=== PATIENT | female | born 1965 | race Two or more races ===

== ENCOUNTER → 2024-07-25 | Outpatient (CLI) | payer MEDICAID, SELFPAY ==
--- NOTE | 2024-07-25 09:30 | XR_ITS ---
EXAMINATION: PET/CT FUSION SKULL TO THIGH EXAM DATE AND TIME: July 25, 2024 1023 hours Comparison PET/CT scan 12/07/2023 INDICATIONS: Diagnosis breast cancer, staging CTDI:vol (mGy) 2.8 DLP: (mGycm) 221.87 PROCEDURE: 17 mCi FDG was administered intravenously To allow for distribution and uptake of radiotracer, the patient was allowed to rest quietly in a shielded room. Imaging was performed on an integrated 16-slice PET/CT scanner, with scanning from the skull base to the mid thigh. Serum blood glucose at the time of the injection was measured 86 mg/dL. CT scanning was performed without oral or intravenous contrast material. FINDINGS: Head and Neck: There is no aly hypermetabolism in the neck. The visualized portions of the brain are normal in appearance on CT. Chest: There is no aly hypermetabolism in the chest. There are no pulmonary nodules. Abdomen and Pelvis: There is no aly hypermetabolism in retroperitoneal or pelvic chains. The spleen is normal in size and FDG avidity. Musculoskeletal: Stable mild hypermetabolic activity right humeral head IMPRESSION: No interval metastatic disease
== END | disposition home or self-care (01) ==
LOC: CDIM 09:21
PROVIDERS: PCP Family Medicine; Referring Provider Internal Medicine Hematology & Oncology; Visit Provider Internal Medicine Hematology & Oncology
DX: C50.111 Malignant neoplasm of central portion of right female breast (principal)
CPT/HCPCS: 78815; A9552